=== PATIENT | female | born 2000 | race Caucasian/White ===

== ENCOUNTER → 2022-09-04 09:23 | Outpatient (CLI) | payer BC, SELFPAY ==
--- NOTE | ~2022-09-04 | US_ITS ---
EXAMINATION: US OB /maternal detail DATE: 09/04/2022 10:27 INDICATION: anatomic survey. TECHNIQUE: Real-time ultrasound of the pelvis was performed. COMPARISON: None. FINDINGS: There is a single living fetus in transverse lie. The placenta is posterior, 3.4 cm from the cervix. The cervical length is 4.5 cm on transabdominal images, which is normal. heart rate is 159 karin ts per minute (bpm). The amniotic fluid volume is subjectively normal. The following biometric data were obtained: Biparietal diameter (BPD): 4.6 cm; head circumference (HC): 17.6 cm; abdominal circumference (AC): 14 .8 cm; femur length (FL): 3.3 cm. These measurements are concordant. Estimated weight is 334 g +/- 50 g, which correlates with the 61st percentile when 01/23/23 is u sed as estimated date of delivery. As single measurements, these parameters are each equal to the following estimated gestational ages: BPD: 20 weeks 0 days. HC: 20 weeks 0 days. AC: 20 weeks 0 days. FL: 20 weeks 2 days. estimated gestational age based solely on measurements from this exam is 20 weeks 1 days +/- 1 weeks 3 days. The cerebral ventricles, cerebellum, cisterna magna, nuchal fold, and visualized portions of the spin e are normal. The heart is normal. The diaphragm, stomach, kidneys, and bladder are normal. There are two umbilical arteries to yield a 3-vessel cord. The cord insertion is normal. IMPRESSION: 1. Single living fetus in transverse lie. 2. Estimated weight is 334 g +/- 50 g, which correlates with the 61st percentile when 01/23/23 is used as estimated date of delivery. 3. Normal anatomic survey. Reviewed, dictated and finalized at location A. IMPRESSION: 1. Single living fetus in transverse lie. 2. Estimated weight is 334 g +/- 50 g, which correlates with the 61st pe rcentile when 01/23/23 is used as estimated date of delivery. 3. Normal anatomic survey.
== END ==
PROVIDERS: Visit Provider Obstetrics & Gynecology Gynecology
DX: Z36.9 Encounter for antenatal screening, unspecified (principal); Z3A.20 20 weeks gestation of pregnancy
CPT/HCPCS: 76805

== ENCOUNTER → 2022-12-13 10:48 | Outpatient (CLI) | payer BC, SELFPAY ==
--- NOTE | ~2022-12-13 | US_ITS ---
EXAMINATION: US OB follow up DATE: 12/13/2022 11:16 INDICATION: Expected size greater than expected for estimated gestational age during third trim karolina . TECHNIQUE: Real-time ultrasound of the pelvis was performed. The interpreting radiologist was not pre sent for the study. COMPARISON: None. FINDINGS: There is a single living fetus in vertex presentation. The placenta is posterior and not low-lying. The region of the cervix is obscured by shadowing from the skull. heart rate is 131 beats per minute (bpm). The amniotic fluid index is 19.3 cm, which is normal (5th%-95%: 8.1-24.8 cm at C4 weeks estimated gestational age). The following biometric data were obtained: BPD: 8.8 cm -> 35 weeks 3 days Head circumference: 32.3 cm -> 36 weeks 4 days Abdominal circumference: 30.7 cm -> 34 weeks 5 days Femur length: 6.6 cm -> 34 weeks 0 days These measurements are concordant. Head circumference to abdominal circumference ratio: 1.05 (normal range 0.93-1.11). Estimated weight: 2506 g (+/-) 376 g or 5 lbs. 8 oz. (+/-) 13 oz. IMPRESSION: 1. Single living fetus in vertex presentation with heart rate of 131 bpm. 2. Normal amniotic fluid index of 19.3 cm. 3. Estimated weight is 63rd percentile by Hadlock criteria when 01/23/2023 is used as the estima kimberly date of delivery (DONNA). Please correlate with clinical information or earlier ultrasounds for mos t accurate DONNA. Reviewed, dictated and finalized at location B. IMPRESSION: 1. Single living fetus in vertex presentation with heart rate of 131 bpm. 2. Normal amniotic fluid index of 19.3 cm. 3. Estimated weight is 63rd percentile by Hadlock criteria when 01/23/2023 is used as the estimated date of delivery (DONNA). Please correlate with clinica l information or earlier ultrasounds for most accurate DONNA.
== END ==
PROVIDERS: PCP Advanced Practice Midwife; Visit Provider Advanced Practice Midwife
DX: O36.63X0 Maternal care for excessive fetal growth, third trimester, not applicable or unspecified (principal); Z3A.00 Weeks of gestation of pregnancy not specified
CPT/HCPCS: 76816

== ENCOUNTER 2022-12-16 20:50 | Outpatient (CLI) | payer BC, OTHER, SELFPAY ==
--- NOTE | 2022-12-16 21:14 | OBADM ---
This patient, Hawa Soto, admitted to the OB room OB Post 116 for observation. Patient/family oriented to hospital policies and general routines including ID bracelet, bed and alarms, visiting hours, pain management, procedures, bathroom and other care routines, personal items, smoking policy, room service/diet, and visiting hours. Patient/Family are encouraged to report perceived risks to care and to ask questions if they do not understand what they are told or what they should do.
[2022-12-16 21:16] VITALS: BP 120/66; PULSE 73; BMI 35.2
[2022-12-16 21:17] VITALS: BP 120/66; PULSE 71
[2022-12-16 21:46] VITALS: BP 121/65; PULSE 70
[2022-12-16 22:01] VITALS: BP 103/83; PULSE 67
[2022-12-16 22:16] VITALS: BP 114/64; PULSE 68
--- NOTE | 2022-12-16 22:19 | PC.NURSE ---
This Rn talked to Dr. Nguyen at this time and reported on maternal and status. Patient having a headache but the patient already took Tylenol. Patient can be dc at this time and told to drink more water at work.
== END 2022-12-16 22:27 | disposition home or self-care (01) ==
LOC: ANHOBOP 12-17 00:20 → ANHOBPP 12-17 00:20
PROVIDERS: PCP Advanced Practice Midwife; Visit Provider Obstetrics & Gynecology Gynecology
DX: O13.9 Gestational [pregnancy-induced] hypertension without significant proteinuria, unspecified trimester (principal); Z3A.00 Weeks of gestation of pregnancy not specified
CPT/HCPCS: 99199

== ENCOUNTER 2022-12-25 12:09 | Observation (INO) | payer BC, OTHER, SELFPAY ==
[2022-12-25] VITALS (7 sets, daily range): BP systolic 111–132; BP diastolic 57–71; PULSE 70–93
[2022-12-25 13:03] LABS: Basophils Percent Auto 0.2 % (0.2-1.2); Eosinophils Absolute Auto 0.1 K/mm3 (0-0.3); Eosinophils Percent Auto 0.6 % (0-4.4); Hematocrit 37.2 % (37.0-47.0); Hemoglobin 12.1 g/dL (12.0-15.0); Immature Granulocyte Absolute 0.07 K/mm3 (0.00-0.031); Immature Granulocyte Percent A 0.7 % (0-0.5); Lymphocytes Absolute Auto 1.26 K/mm3 (0.9-3.2); Lymphocytes Percent Auto 12.8 % (18.3-44.2); Mean Corpuscular HGB Conc 32.5 g/dl (32-36); Mean Corpuscular Hemoglobin 28.3 pg (26-34); Mean Corpuscular Volume 87.1 fl (80-100); Mean Platelet Volume 11.1 fl (7.4-10.4); Monocytes Absolute Auto 0.6 K/mm3 (0.1-0.6); Monocytes Percent Auto 5.9 % (2.6-8.5); Neutrophils Absolute Auto 7.8 K/mm3 (1.3-6.7); Neutrophils Percent Auto 79.8 % (45.5-73.1); Platelet Count Result 223 k/mm3 (150-375); Red Blood Count 4.27 M/mm3 (4.2-5.4); Red Cell Distribution Width 13.3 % (11.5-14.5); White Blood Count 9.8 K/mm3 (4.5-10.0)
[2022-12-25 13:12] LABS: Alanine Aminotransferase 21 U/L (6-35); Albumin Level 3.8 g/dL (3.5-5.1); Alkaline Phosphatase 178 U/L (38-126); Anion Gap 7 mmol/L (8-16); Aspartate Amino Transferase 19 U/L (14-36); Bilirubin,Total 0.3 mg/dL (0.2-1.3); Blood Urea Nitrogen 6 mg/dL (7-17); Calcium 8.9 mg/dL (8.4-10.2); Carbon Dioxide 22 mmol/L (22-30); Chloride 107 mmol/L (98-107); Creatinine Urine 163.1 mg/dL; Estimated Glomerular Filt Rate > 60; Glucose 77 mg/dL (65-110); Potassium 3.6 mmol/L (3.4-5.0); Sodium 136 mmol/L (137-145); Total Protein Urine Random 13 mg/dL; Ur Ttl Prot Creatinine Ratio 0.08 mg/mg (0-0.20)
[2022-12-25 13:41] LABS: Appearance Urine Clear (Clear); Bacteria Urine Rare /hpf; Bilirubin Urine Negative (Negative); Blood Urine Negative (Negative); Calcium Oxalate Crystals Urine Present /hpf; Color Urine Yellow (Yellow); Glucose Urine UA Negative (Negative); Ketones Urine Trace mg/dL (Negative); Leukocyte Esterase Ur Trace LEU/UL (NEGATIVE); Nitrate Urine Negative (Negative); Non Pathogenic Casts 0-2; Protein Urine Negative (Negative); Specific Grav Ur 1.019 (1.001-1.035); Squamous Epithelial Cell Urine Few /hpf (Few); WBC Urine 0-5 /hpf (0-3); pH Urine 7.5 (5.0-9.0)
[2022-12-25 13:42] LABS: Add Urine Microscopic? YES
--- NOTE | 2022-12-25 13:49 | PC.NURSE ---
Charisse Ramírez notified of adm via EMS with c/o Dizziness, headache and some cramping. Informed of lab results for HIP, orthostatic BP's and current BP's. OK to dc home with pre cautions.
--- NOTE | 2022-12-25 14:13 | PC.NURSE ---
Patient states that she has an appt with Ania on , patient encouraged to report any addition concerns at her next appt.
--- NOTE | 2022-12-31 04:59 | PM.OBTRLD ---
OB - Triage/Final Diagnosis Visit Information Date of evaluation: 12/25/22 Reason for evaluation: other (Dizziness, headache) Comments/Additional reasons for admission: I have assessed the risk for this patient, Hawa Soto, and determined that she would benefit from observation care. Evaluation Laboratory results: Laboratory Tests 12/25/22 12/25/22 12:41 12:42 WBC 9.8 RBC 4.27 Hgb 12.1 Hct 37.2 MCV 87.1 MCH 28.3 MCHC 32.5 RDW 13.3 Plt Count 223 MPV 11.1 H Immature Gran % (Auto) 0.7 H Neut % (Auto) 79.8 H Lymph % (Auto) 12.8 L [place] % (Auto) 5.9 Eos % (Auto) 0.6 Baso % (Auto) 0.2 Lymph # (Auto) 1.26 [place] # (Auto) 0.6 Eos # (Auto) 0.1 Baso # (Auto) 0.0 Abs Immat Gran (auto) 0.07 H Absolute Neuts (auto) 7.8 H Absolute Nucleated RBC 0.0 Nucleated RBC % 0.0 Sodium 136 L Potassium 3.6 Chloride 107 Carbon Dioxide 22 Anion Gap 7 L BUN 6 L Creatinine 0.40 L Estim Creat Clear Calc Not Reportable Estimated GFR > 60 Glucose 77 Uric Acid 5.0 Calcium 8.9 Total Bilirubin 0.3 AST 19 ALT 21 Alkaline Phosphatase 178 H Total Protein 7.0 Albumin 3.8 Urine Color Yellow Urine Appearance Clear Urine pH 7.5 Ur Specific [place] 1.019 Urine Protein Negative Urine Glucose (UA) Negative Urine Ketones Trace H Ur Blood (Man) Negative Urine Nitrate Negative Urine Bilirubin Negative Urine Urobilinogen 1.0 Ur Leukocyte Esterase Trace H Urine RBC 3-5 H Urine WBC 0-5 Ur Squamous Epith Cells Few Calcium Oxalate Crystal Present Urine Bacteria Rare Urine Casts 0-2 U Random Total Protein 13 Urine Creatinine 163.1 Protein/Creat Ratio 2 0.08 Final Diagnosis (1) Dizziness: Code(s): R42 - Dizziness and giddiness Status: Acute (2) Headache: Code(s): R51.9 - Headache, unspecified Status: Acute
== END 2022-12-25 14:15 | disposition home or self-care (01) ==
PROVIDERS: Admitting Provider Advanced Practice Midwife; Visit Provider Advanced Practice Midwife
DX: O26.893 Other specified pregnancy related conditions, third trimester (principal); R42 Dizziness and giddiness; R51.9 Headache, unspecified; R10.9 Unspecified abdominal pain; Z3A.35 35 weeks gestation of pregnancy
CPT/HCPCS: 36415; 80053; 81001; 82570; 84156; 84550; 85025; 87086; 87088; G0378; G0379

== ENCOUNTER 2023-01-04 09:57 | Observation (INO) | payer BC, OTHER, SELFPAY ==
[2023-01-04 12:38] VITALS: BMI 32.5
--- NOTE | 2023-01-09 07:31 | PM.OBTRLD ---
OB - Triage/Final Diagnosis Visit Information Reason for evaluation: threatened labor Comments/Additional reasons for admission: I have assessed the risk for this patient, Hawa Soto, and determined that she would benefit from observation care.
== END 2023-01-04 12:45 | disposition home or self-care (01) ==
PROVIDERS: Admitting Provider Obstetrics & Gynecology Gynecology; Visit Provider Obstetrics & Gynecology Gynecology
DX: O47.1 False labor at or after 37 completed weeks of gestation (principal); Z3A.37 37 weeks gestation of pregnancy
CPT/HCPCS: G0378; G0379

== ENCOUNTER 2023-01-05 22:46 | Observation (INO) | payer BC, OTHER, SELFPAY ==
--- NOTE | 2023-01-05 22:50 | OBADM ---
This patient, Hawa Soto, admitted to the OB room Labor/Delivery/Recovery 107 for observation. Patient/family oriented to hospital policies and general routines including ID bracelet, bed and alarms, visiting hours, pain management, procedures, bathroom and other care routines, personal items, smoking policy, room service/diet, and visiting hours. Patient/Family are encouraged to report perceived risks to care and to ask questions if they do not understand what they are told or what they should do.
--- NOTE | 2023-01-06 00:38 | PC.NURSE ---
Dr Mcgraw notified of t's, contractions, no cervical change, orders received.
--- NOTE | 2023-01-09 11:41 | PM.OBTRLD ---
OB - Triage/Final Diagnosis Visit Information Comments/Additional reasons for admission: I have assessed the risk for this patient, Hawa Soto, and determined that she would benefit from observation care. Final Diagnosis (1) Abdominal pain affecting : Code(s): O26.899 - Other specified related conditions, unspecified trimester; R10.9 - Unspecified abdominal pain Status: Acute
== END 2023-01-06 01:35 | disposition home or self-care (01) ==
PROVIDERS: Admitting Provider Obstetrics & Gynecology; Visit Provider Obstetrics & Gynecology
DX: O26.893 Other specified pregnancy related conditions, third trimester (principal); R10.9 Unspecified abdominal pain; Z3A.37 37 weeks gestation of pregnancy
CPT/HCPCS: 96372; A9270; G0378; G0379; J2270

== ENCOUNTER 2023-01-06 19:54 | Observation (INO) | payer BC, OTHER, SELFPAY ==
[2023-01-06 21:00] VITALS: BMI 34.0
[2023-01-07] VITALS (105 sets, daily range): BP systolic 124–144; BP diastolic 61–79; PULSE 39–120; RESP 18; TEMP 36.5; O2SAT 87–100
[2023-01-07] MEDS: ONDANSETRON HCL ODT 4 MG TABLET PO (00:25)
[2023-01-07] MEDS: MORPHINE SULFATE INJ (*CRX) 10 MG/ML AMP 6 MG IM (00:25)
--- NOTE | 2023-01-07 00:44 | OBADM ---
This patient, Hawa Soto, admitted to the OB room Labor/Delivery/Recovery 104 for observation. Patient/family oriented to hospital policies and general routines including ID bracelet, bed and alarms, visiting hours, pain management, procedures, bathroom and other care routines, personal items, smoking policy, room service/diet, and visiting hours. Patient/Family are encouraged to report perceived risks to care and to ask questions if they do not understand what they are told or what they should do.
--- NOTE | 2023-01-07 07:47 | PM.OBTRLD ---
OB - Triage/Final Diagnosis Visit Information Comments/Additional reasons for admission: I have assessed the risk for this patient, Hawa Soto, and determined that she would benefit from observation care. Evaluation Vital signs: Vital Signs - 24 hr 01/07/23 00:22 01/07/23 00:23 01/07/23 00:23 Temperature Pulse Rate Respiratory Rate Blood Pressure Pulse Oximetry 87 L 100 100 01/07/23 00:26 01/07/23 00:28 01/07/23 00:31 Temperature Pulse Rate 87 92 Respiratory Rate Blood Pressure 133/79 137/61 Pulse Oximetry 100 01/07/23 00:33 01/07/23 00:38 01/07/23 00:43 Temperature Pulse Rate Respiratory Rate Blood Pressure Pulse Oximetry 99 99 99 01/07/23 00:46 01/07/23 00:48 01/07/23 00:53 Temperature Pulse Rate 85 Respiratory Rate Blood Pressure 132/75 Pulse Oximetry 99 99 01/07/23 00:58 01/07/23 01:01 01/07/23 01:03 Temperature Pulse Rate 88 Respiratory Rate Blood Pressure 129/77 Pulse Oximetry 98 98 01/07/23 01:08 01/07/23 01:13 01/07/23 01:16 Temperature Pulse Rate 89 Respiratory Rate Blood Pressure 135/76 Pulse Oximetry 97 97 01/07/23 01:18 01/07/23 01:23 01/07/23 01:28 Temperature Pulse Rate Respiratory Rate Blood Pressure Pulse Oximetry 98 98 97 01/07/23 01:31 01/07/23 01:33 01/07/23 01:38 Temperature Pulse Rate 89 Respiratory Rate Blood Pressure 137/72 Pulse Oximetry 97 98 01/07/23 01:43 01/07/23 01:48 01/07/23 01:53 Temperature Pulse Rate Respiratory Rate Blood Pressure Pulse Oximetry 99 98 98 01/07/23 01:58 01/07/23 02:01 01/07/23 02:03 Temperature Pulse Rate 91 Respiratory Rate Blood Pressure 140/68 Pulse Oximetry 98 98 01/07/23 02:08 01/07/23 02:13 01/07/23 02:16 Temperature Pulse Rate 97 Respiratory Rate Blood Pressure 142/76 H Pulse Oximetry 96 96 01/07/23 02:18 01/07/23 02:23 01/07/23 02:28 Temperature Pulse Rate Respiratory Rate Blood Pressure Pulse Oximetry 96 96 96 01/07/23 02:31 01/07/23 02:33 01/07/23 02:38 Temperature Pulse Rate 94 Respiratory Rate Blood Pressure 140/68 Pulse Oximetry 98 96 01/07/23 02:43 01/07/23 02:46 01/07/23 02:48 Temperature Pulse Rate 95 Respiratory Rate Blood Pressure 136/72 Pulse Oximetry 96 96 01/07/23 02:53 01/07/23 02:58 01/07/23 03:01 Temperature Pulse Rate 100 Respiratory Rate Blood Pressure 139/71 Pulse Oximetry 96 96 01/07/23 03:03 01/07/23 03:08 01/07/23 03:13 Temperature Pulse Rate Respiratory Rate Blood Pressure Pulse Oximetry 96 96 96 01/07/23 03:16 01/07/23 03:18 01/07/23 03:23 Temperature Pulse Rate 95 Respiratory Rate Blood Pressure 137/76 Pulse Oximetry 96 96 01/07/23 03:28 01/07/23 03:31 01/07/23 03:33 Temperature Pulse Rate 105 H Respiratory Rate Blood Pressure 142/77 H Pulse Oximetry 96 96 01/07/23 03:38 01/07/23 03:43 01/07/23 03:46 Temperature Pulse Rate 105 H Respiratory Rate Blood Pressure 144/75 H Pulse Oximetry 96 96 01/07/23 03:48 01/07/23 03:53 01/07/23 03:58 Temperature Pulse Rate Respiratory Rate Blood Pressure Pulse Oximetry 96 97 96 01/07/23 04:01 01/07/23 04:03 01/07/23 04:08 Temperature Pulse Rate 100 Respiratory Rate Blood Pressure 141/73 H Pulse Oximetry 96 97 01/07/23 04:13 01/07/23 04:16 01/07/23 04:18 Temperature Pulse Rate 101 H Respiratory Rate Blood Pressure 143/77 H Pulse Oximetry 96 98 01/07/23 04:23 01/07/23 04:28 01/07/23 04:31 Temperature Pulse Rate 112 H Respiratory Rate Blood Pressure 143/72 H Pulse Oximetry 97 97 01/07/23 04:33 01/07/23 04:38 01/07/23 04:43 Temperature Pulse Rate Respiratory Rate Blood Pressure Pulse Oximetry 97 97 97 01/07/23 04:46 01/07/23 04:48 01/07/23 04:5
== END 2023-01-07 07:08 | disposition home or self-care (01) ==
LOC: ANHLDR 01-07 06:48 → ANHNUR1 01-09 11:22
PROVIDERS: Admitting Provider Obstetrics & Gynecology; Visit Provider Obstetrics & Gynecology
DX: O26.893 Other specified pregnancy related conditions, third trimester (principal); R10.9 Unspecified abdominal pain; Z3A.37 37 weeks gestation of pregnancy
CPT/HCPCS: 96372; A9270; G0378; G0379; J2270

== ENCOUNTER 2023-01-08 06:44 | Inpatient (IN) | payer BC, OTHER, SELFPAY ==
[2023-01-08] VITALS (81 sets, daily range): BP systolic 56–147; BP diastolic 40–90; PULSE 58–164; TEMP 36.6–37.4; O2SAT 97–100; BMI 32.8
[2023-01-08 09:18] LABS: Basophils Percent Auto 0.2 % (0.2-1.2); Eosinophils Percent Auto 0.2 % (0-4.4); Hemoglobin 12.2 g/dL (12.0-15.0); Immature Granulocyte Absolute 0.05 K/mm3 (0.00-0.031); Immature Granulocyte Percent A 0.4 % (0-0.5); Lymphocytes Absolute Auto 1.21 K/mm3 (0.9-3.2); Lymphocytes Percent Auto 9.7 % (18.3-44.2); Mean Corpuscular HGB Conc 32.1 g/dl (32-36); Mean Corpuscular Hemoglobin 27.9 pg (26-34); Mean Platelet Volume 11.1 fl (7.4-10.4); Monocytes Absolute Auto 0.8 K/mm3 (0.1-0.6); Monocytes Percent Auto 6.5 % (2.6-8.5); Neutrophils Absolute Auto 10.4 K/mm3 (1.3-6.7); Platelet Count Result 265 k/mm3 (150-375); Red Blood Count 4.37 M/mm3 (4.2-5.4); Red Cell Distribution Width 13.4 % (11.5-14.5); White Blood Count 12.5 K/mm3 (4.5-10.0)
--- NOTE | 2023-01-08 09:38 | LDADM ---
This patient, Hawa Soto, was admitted to Labor/Delivery/Recovery 107 on 01/08/23 at 06:44. Plans for labor, pain management and were discussed with patient. Patient/family oriented to hospital policies and general routines including ID bracelet, bed and alarms, visiting hours, pain management, procedures, bathroom and other care routines, personal items, smoking policy, room service/diet and guest tray routines, security routines, and visiting hours. Patient/Family are encouraged to report perceived risks to care and to ask questions if they do not understand what they are told or what they should do. See [facility]BI[facility] for further documentation.
[2023-01-08] MEDS: fentaNYL CITRATE INJ (*CRX) 100 MCG/2 ML VIAL 50 MCG IV PUSH ×2 (10:41→11:48)
[2023-01-08 11:06] LABS: Rapid Plasma Reagin Non-Reactive (NonReactive)
[2023-01-08] MEDS: LACTATED RINGERS 1,000 ML 125 ML IV CONT ×2 (11:40→12:43)
--- NOTE | 2023-01-08 12:41 | WPDANESEPP ---
Anes - Eval Pre Procedure Procedure: Labor epidural Date/Time: 01/08/23 12:41 Surgeon: Bala Preop Diagnosis: Pain during labor Pre Op Diagnosis: Contractions/Leaking Patient Data Age: 22 Gender: F Height: Weight: Last Vital Signs Temp 36.8 C 01/08/23 09:59 Pulse 83 01/08/23 12:31 BP 126/66 01/08/23 12:31 O2 Del Method Room Air 01/08/23 09:42 Allergies Allergy/AdvReac Type Severity Reaction Status Date / Time No Known Allergies Allergy Verified 01/07/23 00:09 Home Medications Medication Instructions Recorded Confirmed Type citalopram 40 mg tablet 40 mg PO DAILY 12/23/22 01/08/23 History ergocalciferol (vitamin D2) 1,250 1 PO WEEKLY 12/23/22 History mcg (50,000 unit) capsule prenat.vits,juan ramon,fsg-[id number]-gbsro 1 tablet PO DAILY 12/23/22 01/08/23 History Laboratory Tests 01/08/23 09:09 WBC 12.5 H K/mm3 (4.5-10.0) RBC 4.37 M/mm3 (4.2-5.4) Hgb 12.2 g/dL (12.0-15.0) Hct 38.0 % (37.0-47.0) MCV 87.0 fl (80-100) MCH 27.9 pg (26-34) MCHC 32.1 g/dl (32-36) RDW 13.4 % (11.5-14.5) Plt Count 265 k/mm3 (150-375) MPV 11.1 H fl (7.4-10.4) Immature Gran % (Auto) 0.4 % (0-0.5) Neut % (Auto) 83.0 H % (45.5-73.1) Lymph % (Auto) 9.7 L % (18.3-44.2) [place] % (Auto) 6.5 % (2.6-8.5) Eos % (Auto) 0.2 % (0-4.4) Baso % (Auto) 0.2 % (0.2-1.2) Lymph # (Auto) 1.21 K/mm3 (0.9-3.2) [place] # (Auto) 0.8 H K/mm3 (0.1-0.6) Eos # (Auto) 0.0 K/mm3 (0-0.3) Baso # (Auto) 0.0 K/mm3 (0.0-0.1) Abs Immat Gran (auto) 0.05 H K/mm3 (0.00-0.031) Absolute Neuts (auto) 10.4 H K/mm3 (1.3-6.7) Absolute Nucleated RBC 0.0 K/mm3 (0.0-0.012) Nucleated RBC % 0.0 % (0.0-0.2) RPR Non-reactive (NonReactive) Blood Type B Positive Antibody Screen Negative Patient hx anesthesia problems: none Family hx anesthesia problems: none Results Review: All pre-operative results and documents have been reviewed as part of the pre-operative evaluation. [facility] Family History Family History Grandparent Factor 5 Leiden mutation, heterozygous Social History Social History Smoking status: Never smoker Substance use: never Lack of Transportation: No Lack of Food: Never True Current Housing: I Have Housing Concerned About Future Housing: No Difficulty Paying Gas/Electric Bills: No Difficulty Paying for Meds: No Currently Unemployed: No Education: Associate Degree Difficulty w/ Childcare or Family Care: No Spiritual care concerns: No Exam Day of Procedure 01/08/23 12:41 Patient weight: overweight Heart: regular rate and rhythm Lungs: clear to auscultation Airway: Mallampati scale class II Neurological: alert and oriented
[2023-01-08] MEDS: OXYTOCIN 30 UNITS/NS 500 ML 30 UNITS/500 ML BAG 6 UNITS IV CONT (14:28)
--- NOTE | 2023-01-08 16:31 | WPDOBADMIT ---
Obstetrics - Admit Note Admission Note: record reviewed. No pertinent additions to the history and/or any subsequent changes in the physical findings that are not consistent with the expected course of the were found. Additions to the history and/or subsequent changes in the physical findings follow. Here in early labor. Now /-1 anterior. AROM with meconium noted. IUPC placed. Pitocin augmentation as needed.
[2023-01-09] VITALS (23 sets, daily range): BP systolic 120–136; BP diastolic 67–83; PULSE 74–108; RESP 16–18; TEMP 36.3–37; O2SAT 97–100
--- NOTE | 2023-01-09 00:18 | P.PCNOB_ITS ---
OB - Delivery Note Procedure Delivery date: 01/09/23 Procedure: Induction method: None Delivery augmentation: Rupture of Membranes and Pitocin Delivery monitor: External FHT and Internal Uterine Route of delivery: Laceration Description: Perineal - 2nd Degree Delivery repair: vicryl (3-0) Specimen: Yes (placenta) Quantitative Blood Loss (ml): 150 Anesthesia type: Local Disposition: Floor [place] Baby Date of : 01/09/23 Weeks of gestation at delivery: 38 Infant gender: Female presentation: vertex position: Right Occiput Anterior Placenta delivery description: Spontaneous Cord Vessel Description: 3 Vessels score one minute: 8 score five minutes: 9 Narrative: infant initially cried x 1 with excessive bubbles in mouth, bulb suctioned, no additional crying so cord cut and handed to nursery nurse and director media
--- NOTE | 2023-01-09 00:21 | PM.OBDSVD ---
DS: Admitting Diagnosis Discharge Date 01/10/23 Admitting Diagnosis IUP 38 wks with active labor DS: Discharge Diagnosis Discharge Diagnosis (1) (normal spontaneous vaginal delivery): Code(s): O80 - Encounter for full-term uncomplicated delivery Status: Acute OB - DS: Summary OB Procedures : Ultrasound OB Procedures Intrapartum: Spontaneous Vag Delivery OB Procedures: : None Peripartum Data Infant Delivery Method: Natural Vaginal Laceration Description: Perineal - 2nd Degree complications: none Status at Discharge Functional status at discharge: independent ambulation Overall status at discharge: patient is progressing back to baseline Time Spent with Patient Time attestation: Total time spent providing and/or coordinating discharge services: DS: Data Data Completed and Pending Labs on day of discharge: Labs from last 24 hours 01/08/23 09:09 WBC 12.5 H RBC 4.37 Hgb 12.2 Hct 38.0 MCV 87.0 MCH 27.9 MCHC 32.1 RDW 13.4 Plt Count 265 MPV 11.1 H Immature Gran % (Auto) 0.4 Neut % (Auto) 83.0 H Lymph % (Auto) 9.7 L [place] % (Auto) 6.5 Eos % (Auto) 0.2 Baso % (Auto) 0.2 Lymph # (Auto) 1.21 [place] # (Auto) 0.8 H Eos # (Auto) 0.0 Baso # (Auto) 0.0 Abs Immat Gran (auto) 0.05 H Absolute Neuts (auto) 10.4 H Absolute Nucleated RBC 0.0 Nucleated RBC % 0.0 RPR Non-reactive Blood Type B Positive Antibody Screen Negative Discharge Plan Discharge Attending physician on discharge: Miya Mckenna Consulting providers: Ania Ramírez; Merle Kennedy; Ted Rios Discharging Clinician: Ania Ramírez Anticipated Discharge Date/Time: 01/11/23 00:22 Patient Disposition: Home, Self-Care Activity: may shower and pelvic rest Diet: regular Wound Care Instructions: follow printed instructions Discharge Instructions: Education: Mom and Baby Guide Given to: Mother Follow-Up: Call your delivering provider's office for an appointment to be seen in: 6 Weeks Mom and baby should come to the [facility] for the follow-up appointment. Appointment Date/Time: January 12, 2023 at 11:00 am What to expect at your follow-up visit: Blood Pressure Check Physical Assessment Call [phone] if you are unable to keep your appointment time. BREAST CARE: * Wear a snug supportive bra. * For engorgement discomfort: Bottle Feeding: * May apply ice packs PERINEAL CARE: * Until bleeding stops, use your eloise bottle after urinating * Change your pad frequently throughout the day * You may take sitz baths several times a day (fill your bathtub with warm water and soak for 20 minutes.) Do NOT bathe in the water * No tub baths until seen by your physician - You may shower ACTIVITY: * Rest as much as possible. * Do not exercise or lift anything heavier than your baby (such as laundry or other children.) * Avoid stairs or driving as much as possible. * Do not put anything into the vagina. No douching, tampons, or sexual activity until seen by physician. NOTIFY PHYSICIAN IF YOU HAVE ANY QUESTIONS OR IF ANY OF THE FOLLOWING SYMPTOMS OCCUR: * If your vaginal bleeding becomes foul smelling. * If your vaginal bleeding becomes more heavy than a period or if your bleeding changes from pink to bright red. However, you may pass an occasional walnut-sized clot once or twice for the first week . * If you experience a sharp, shooting pain in your calves. * If you discover a hard, reddened area on your breast or if you experience flu-like symptoms. DIET: * Eat regular, well-balanced meals. * Drink plenty of fluids daily. If , drink to thirst. Continue taking your vitamin and any other supplements as previously directed (Examples: Iron, Vitamin D). You may take Tylenol 1000mg over the counter every 6 hours as needed for pain. Do not exceed 4000mg of Tylenol daily. You may continue usi
[2023-01-09] MEDS: OXYTOCIN 30 UNITS/NS 500 ML 30 UNITS/500 ML BAG 125 UNITS IV CONT (00:42)
--- NOTE | 2023-01-09 02:40 | OBPPTRN ---
Patient transferred to post room #285 via wheelchair. Support person present. Oriented to unit, room, information board, rooming in, admission packet and security measures. Patient verbalizes understanding.
[2023-01-09] MEDS: IBUPROFEN 600 MG TABLET (03:00)
[2023-01-09] MEDS: MULTIVIT/MIN/PREN/FOL AC/IRON TABLET 1 TAB PO (10:23)
--- NOTE | 2023-01-09 13:08 | PC.NURSE ---
[id number] Re-introductions were made as we have met before during class. Consulted with patient to assess needs related to . Mother led the conversation with her?plans to breastfeed and states the?experience so far has been good with exception to infant wanting to sleep. Mother works well with her with encouragement. Encouraged understanding of the benefits of skin to skin (demonstrating unwrapping infant and placing upright on her chest), stimulating with massage touch, changing positions to encourage wakefulness, how to watch for early feeding cues, responsive feeding, feeding on demand (aiming for 8-12 times in 24 hours, about every 2-3 hours), milk production, building/maintaining a milk supply, duration of feeding, signs of adequate intake/output ( has had appropriate output) and how to record on the feeding sheet. Reviewed positioning and ear, shoulder, hip alignment, supporting the breast to facilitate a deep latch, asymmetrical latch (off-center), leading with the chin with a big, open, wide gape and body close to mother. Infant latched optimally to the right and left breast using the football position. Mother has good technique and opens wide. Education given to mother of how to visualize suck and swallowing at the breast. Infant was able to maintain latch without discomfort to mother. Nipple care reviewed with optimal latch and good positioning. demonstrates gagging refluxes at times. Mother states infant was suctioned out after delivery. Reminding mother of comfort measures of healing with a warm and wet washcloth to rinse breast, then leave open to air-dry as needed. Reviewed good handwashing when or touching the breast/nipples to prevent infection. Resources used to facilitate learning were used with the mom and baby guide. Mother voiced understanding of skin to skin, stimulating with massage touch, responsive feedings, talking to infant to encourage if it has been 2 -2.5 hours since the start of the last , to call if infant does not latch, or if there is discomfort with . Resources provided for inpatient/outpatient with name written on the communication board and the mom/baby guide. Mother voiced understanding of information, demonstrated learning and will call if there is a request for assistance. Reported to the primary RN.
[2023-01-10 05:04] LABS: Hemoglobin 11.1 g/dL (12.0-15.0)
[2023-01-10 08:02] VITALS: BP 126/92; PULSE 86; RESP 16; TEMP 36.7; O2SAT 99
[2023-01-10] MEDS: DOCUSATE SODIUM 100 MG CAPSULE PO (09:03)
--- NOTE | 2023-01-10 09:08 | PC.NURSE ---
On 01/10/23, the student, Froylan Segura, provided care and completed [facility] documentation on this patient. I have reviewed the student's documentation and agree with the findings.
--- NOTE | 2023-01-10 09:25 | PC.NURSE ---
Patient viewed the discharge video Mother & Baby Care, The First Two Weeks . Patient was given the opportunity and encouraged to ask questions. Patient verbalized understanding of information shared and has been given the mother/baby guide for home reference.
--- NOTE | 2023-01-10 10:51 | PM.OBPNVD ---
OB - PN: Subj Subjective Date/time seen: 01/10/23 0740 Interval history: PPD 1 from . Bottle feeding. Denies passing large clots. Urinating without difficulty. Tolerating regular diet. Bonding with infant. Patient comments: no complaints and pain well controlled baby status: doing well feeding status: exclusively bottle feeding OB - PN: Obj Data Labs 01/10/23 04:28 Labs: Laboratory Results - last 24 hr 01/10/23 04:28 Hgb 11.1 L Hct 35.0 L OB - PN A/P Plan day: 1 Plan: discharge home Comments: Desires DC today. Time Spent With Patient Time: Total time spent is greater than 50% in coordination of care (as documented) at patient's floor/unit and/or counseling patient: Time with patient: 15 - 25 minutes Review of Systems Review of Systems: All systems reviewed & are unremarkable except as noted in HPI and below Constitutional: Constitutional: Reports no additional constitutional complaints Genitourinary: Comments: Urinating without difficulty. Exam Narrative: Alert and oriented. Mood is pleasant and cooperative. Perineum with minimal edema. Fundus firm and below umbilicus. Const: General: cooperative, healthy appearing, no acute distress and alert Orientation/consciousness: patient oriented x3 Limitations: no limitations Resp: Effort & Inspection: normal respiratory effort and able to speak in complete sentences Auscultation: clear to auscultation bilaterally Cardio: Rate: regular rate GI: Inspection: normal to inspection Auscultation: normal bowel sounds : Speculum Exam - Vagina: vaginal bleeding OB/external & speculum: vaginal bleeding Skin: General skin exam: normal color and no rashes or lesions noted Neuro: General: patient oriented x3 and moves all extremities Cognition (Neuro): normal cognition Extrem: General: normal to inspection and no calf tenderness Psych: Appearance: grossly normal Mental Status: mental status grossly normal Affect: normal affect Thought process: Normal thought process present
--- NOTE | 2023-01-10 16:31 | WPDANLDPN2 ---
Anes-Prog Note L&D Date/Time: 01/10/23 16:31 Comfortable throughout: labor and delivery Neuraxial method: epidural Epidural/Spinal procedure site: clean & non-tender Neuro status: Neuro function grossly intact. Cardiovascular status: normal Respiratory status: normal Airway patency: baseline Mental status: baseline Post-Op hydration status: normal Vital Signs: Last Vital Signs Temp 36.7 C 01/10/23 08:02 Pulse 86 01/10/23 08:02 Resp 16 01/10/23 08:02 BP 126/92 H 01/10/23 08:02 Pulse Ox 99 01/10/23 08:02 O2 Del Method Room Air 01/10/23 07:55 Pain score (VAS): 05/16 Post-procedural complaints: none Patient feedback: Patient satisfied with anesthetic care.
[2023-01-12 11:16] VITALS: BP 132/73; PULSE 67; RESP 18; TEMP 36.6; O2SAT 100
== END 2023-01-10 11:42 | disposition home or self-care (01) | DRG 807 ==
LOC: ANHLDR 01-09 00:23 → ANHOB2 01-09 03:24
PROVIDERS: Admitting Provider Obstetrics & Gynecology Gynecology; Referring Provider Advanced Practice Midwife; Visit Provider Obstetrics & Gynecology Gynecology
DX: O77.0 Labor and delivery complicated by meconium in amniotic fluid (principal); Z37.0 Single live birth; Z3A.38 38 weeks gestation of pregnancy; O70.1 Second degree perineal laceration during delivery
CPT/HCPCS: 36415; 84112; 85014; 85018; 85025; 86592; 86850; 86900; 86901; 88307; A9270; J2590; J2795; J3010; J7120